=== PATIENT | female | born 1945 | race Caucasian/White ===

== ENCOUNTER 2019-04-21 09:07 | Outpatient (CLI) | payer BC ==
--- NOTE | 2019-04-21 12:47 | BD ---
BONE DENSITOMETRY: INDICATION: Postmenopausal osteoporosis screening. FINDINGS: Lumbar Spine: BMD (g/cm2) L1 0.814 T-Score: -1.6 L2 0.820 T-Score: -1.9 L3 0.901 T-Score: -1.7 L4 0.852 T-Score: -1.9 L1-L4 0.847 T-Score: -1.8 Femoral Neck: 0.567 T-Score: -2.5 Total Femur: 0.737 T-Score: -1.7 Impression: 1. Bone mineral density of the femoral neck indicates osteoporosis. 2. Bone mineral density of the lumbar spine indicates osteopenia. POS: [facility]
--- NOTE | 2019-04-28 11:10 | MMO ---
Bilateral MAMMO Bilat Screen [facility]+GUILLERMO. CLINICAL HISTORY: Patient is 73 years old and is seen for screening. The patient has no family history of breast cancer. The patient has no personal history of cancer. The patient has a history of right needle biopsy in 2009 - benign. VIEWS: The views performed were: bilateral craniocaudal with tomosynthesis and bilateral mediolateral oblique with tomosynthesis. FILMS COMPARED: The present examination has been compared to prior imaging studies performed at [facility] on 03/25/2004, 03/28/2005 and 02/25/2010. This study has been interpreted with the assistance of computer-aided detection. MAMMOGRAM FINDINGS: There are scattered fibroglandular densities. There is spiculation which appears to be adjacent to a mass in upper outer right breast. Spiculation seen on MLO only. In the left breast, there are no suspicious masses, calcifications or areas of architectural distortion. IMPRESSION: FINDING IN THE RIGHT BREAST REQUIRES ADDITIONAL EVALUATION. ADDITIONAL PROJECTIONS (RIGHT MEDIOLATERAL OBLIQUE WITH TOMOSYNTHESIS; RIGHT MEDIOLATERAL; AND RIGHT EXAGGERATED CRANIOCAUDAL WITH TOMOSYNTHESIS) ARE RECOMMENDED. THE RESULTS OF THIS EXAM WERE SENT TO THE PATIENT. ACR BI-RADS Category 0 - Incomplete: Need additional imaging evaluation. [facility] will notify the patient of the need for additional imaging services. MAMMOGRAPHY NOTE: 1. A negative mammogram report should not delay a biopsy if a dominant of clinically suspicious mass is present. 2. Approximately 10% to 15% of breast cancers are not detected by mammography. 3. Adenosis and dense breasts may obscure an underlying neoplasm. Reported by: SEBASTIAN GRAVES MD Electonically Signed: [id number]
== END 2019-04-21 09:08 | disposition home or self-care (01) ==
LOC: BICMAMMO 09:07
PROVIDERS: ATTEND Internal Medicine
DX: Z12.31 Encounter for screening mammogram for malignant neoplasm of breast (principal); M81.0 Age-related osteoporosis without current pathological fracture; M85.88 Other specified disorders of bone density and structure, other site
CPT/HCPCS: 77063; 77067; 77080

== ENCOUNTER 2019-05-07 09:43 | Outpatient (CLI) | payer BC ==
--- NOTE | 2019-05-07 10:44 | MMO ---
Right Breast MAMMO Unilat Diag DDI RT+GUILLERMO. CLINICAL HISTORY: Patient is 73 years old and is seen for additional evaluation requested from prior study. The patient has no family history of breast cancer. The patient has no personal history of cancer. The patient has a history of right needle biopsy in 2009 - benign. VIEWS: The views performed were: right craniocaudal spot compression with tomosynthesis; right mediolateral oblique spot compression with tomosynthesis; and right mediolateral with tomosynthesis. FILMS COMPARED: The present examination has been compared to prior imaging studies performed at [facility] on 04/21/2019 and 05/07/2019, and at [facility] on 03/28/2005 and 02/25/2010. This study has been interpreted with the assistance of computer-aided detection. MAMMOGRAM FINDINGS: There are scattered fibroglandular densities. There is an area of architectural distortion seen in the posterior region of the right breast at 11 o'clock. The patient provides a history of prior biopsy in this breast, which may explain the mammographic finding. Prior mammography was not performed with tomosynthesis and evaluation for stability is thus limited. Sonography of this region demonstrates no concerning findings. IMPRESSION: AREA OF ARCHITECTURAL DISTORTION IN THE RIGHT BREAST IS PROBABLY BENIGN. FOLLOW-UP IN 6 MONTHS IS RECOMMENDED. THE RESULTS OF THIS EXAM WERE SENT TO THE PATIENT. ACR BI-RADS Category 3 - Probably benign finding - short interval follow-up suggested. [facility] will notify the patient of the need for additional imaging services. MAMMOGRAPHY NOTE: 1. A negative mammogram report should not delay a biopsy if a dominant of clinically suspicious mass is present. 2. Approximately 10% to 15% of breast cancers are not detected by mammography. 3. Adenosis and dense breasts may obscure an underlying neoplasm. Reported by: GAVIN HUSSEIN MD Electonically Signed: [id number]
--- NOTE | 2019-05-07 11:11 | ULT ---
LIMITED RIGHT BREAST ULTRASOUND: 05/07/2019 PROVIDED CLINICAL HISTORY: Abnormal mammogram. FINDINGS: Limited sonographic interrogation was performed of the right breast in the region of mammographic con cern. A benign appearing mass corresponding to a stable mammographic finding is seen at the 11 o'cloc k position. The architectural distortion seen immediately adjacent to this on the mammogram demonstra karl no sonographic correlate. IMPRESSION: No concerning sonographic abnormality is present in the region of mammographic concern. Six months fo llow-up diagnostic mammogram on the right is recommended. BI-RADS category 3 - probably benign findings. POS: [facility]
== END 2019-05-07 09:44 | disposition home or self-care (01) ==
LOC: BICMAMMO 09:43
PROVIDERS: ATTEND Internal Medicine
DX: R92.8 Other abnormal and inconclusive findings on diagnostic imaging of breast (principal)
CPT/HCPCS: G0279

== ENCOUNTER 2019-08-19 14:32 | Emergency (ER) | payer BC, MEDICARE ==
[2019-08-19 15:13] LABS: #Eosinphils 0.3 thou/uL (0.0-0.7); #Lymphocytes 2.9 thou/uL (1.20-3.40); #Monocytes 0.5 thou/uL (0.11-0.59); #Neutrophils 3.9 thou/uL (1.40-6.50); %Basophils 0.4 % (0.0-1.0); %Eosinophils 3.4 % (0.0-10.0); %Lymphocytes 38.8 % (21.0-51.0); %Monocytes 6.3 % (0.0-10.0); %Neutrophils 51.2 % (42.0-75.0); Hemoglobin 13.5 g/dL (12.0-16.0); Mean Corpuscular HGB CONC 34.5 g/dL (32.0-36.0); Mean Corpuscular Hemoglobin 28.8 pg (27.0-31.0); Mean Corpuscular Volume 83.4 fL (78.0-98.0); Mean Platelet Volume 7.5 fL (7.4-10.4); Platelet Count 192 thou/uL (130-400); RBC Distribution Width 12.1 % (11.5-14.5); White Blood Cell (WBC) Count 7.5 thou/uL (4.8-10.8)
[2019-08-19 15:34] LABS: ALT (SGPT) 17 U/L (8-55); AST (SGOT) 19 U/L (5-34); Albumin 4.2 g/dL (3.4-4.8); Alkaline Phosphatase 71 U/L (40-110); Anion Gap 13 mmol/L (10-20); BUN (Urea Nitrogen) 14 mg/dL (9.8-20.1); Bilirubin, Total 0.5 mg/dL (0.2-1.2); Calc. Creatinine Clearance 0 mL/min (70-130); Calcium 9.4 mg/dL (7.8-10.44); Carbon Dioxide 23 mmol/L (23-31); Chloride 110 mmol/L (98-107); Estimated GFR-MDRD 71; Globulin 2.5 g/dL (2.4-3.5); Glucose 96 mg/dL (83-110); Potassium 3.9 mmol/L (3.5-5.1); Protein, Total 6.7 g/dL (6.0-8.3); Sodium 142 mmol/L (136-145)
--- NOTE | 2019-08-19 15:40 | RAD ---
PA AND LATERAL CHEST: HISTORY: Chest pain. COMPARISON: A 09/21/2012 exam. FINDINGS: Heart size is upper limits of normal. There is some atherosclerotic change of the aorta. The lungs are clear of any infiltrates. There are some mild arthritic changes of the spine. Surgical clips ar e seen in the right upper quadrant of the abdomen. IMPRESSION: No active intrathoracic disease. POS: [facility]
[2019-08-19] MEDS ORDERED: Diazepam 5 MG TAB ONE (16:01)
== END 2019-08-19 17:00 | disposition home or self-care (01) ==
LOC: ERS 14:32
DX: I10 Essential (primary) hypertension (principal); I25.10 Atherosclerotic heart disease of native coronary artery without angina pectoris; I25.2 Old myocardial infarction; K21.9 Gastro-esophageal reflux disease without esophagitis; E78.5 Hyperlipidemia, unspecified; E78.00 Pure hypercholesterolemia, unspecified; F32.9 Major depressive disorder, single episode, unspecified; Z87.891 Personal history of nicotine dependence
CPT/HCPCS: 36415; 71046; 80053; 84484; 85025; 93005

== ENCOUNTER 2020-01-22 13:50 | Outpatient (CLI) | payer MEDICARE, BC ==
--- NOTE | 2020-01-22 14:49 | MRI ---
MRI OF THE RIGHT KNEE: 01/22/20 PROVIDED CLINICAL HISTORY: Right knee pain. FINDINGS: The anterior cruciate ligament, posterior cruciate ligament, medial collateral ligament and lateral c ollateral ligamentous complex demonstrate an intact MR appearance as does the extensor mechanism. The medial and lateral menisci demonstrate no definite evidence for tear. There is equivocal grade II I signal demonstrated involving the body/anterior horn junction of the medial meniscus and equivocal irregularity involving the free edge of the posterior horn of the medial meniscus. There is full thickness articular cartilage loss involving the median ridge and lateral aspects of th e medial facet of the patella. No additional full thickness articular cartilage loss is evident. There is a small knee joint effusion. There is conspicuous distention of the popliteal recess. No focal concerning regional marrow or muscular signal abnormality is evident. IMPRESSION: 1. Findings equivocal for tear involving the medial meniscus. 2. Patellar chondrosis. 3. Small knee joint effusion. POS: [facility]
== END 2020-01-22 13:51 | disposition home or self-care (01) ==
LOC: SCSMRI 13:50
PROVIDERS: ATTEND Orthopaedic Surgery
DX: M23.91 Unspecified internal derangement of right knee (principal); M25.461 Effusion, right knee; R93.7 Abnormal findings on diagnostic imaging of other parts of musculoskeletal system

== ENCOUNTER 2020-02-03 08:47 | Outpatient (CLI) | payer MEDICARE, BC ==
--- NOTE | 2020-02-03 09:19 | MMO ---
Right Breast MAMMO Unilat Diag [facility]DI RT+GUILLERMO. CLINICAL HISTORY: Patient is 74 years old and is seen for diagnostic exam. The patient has no family history of breast cancer. The patient has no personal history of cancer. The patient has a history of right needle biopsy in 2009 - benign. VIEWS: The views performed were: right craniocaudal with tomosynthesis; right mediolateral oblique with tomosynthesis; and right mediolateral with tomosynthesis. FILMS COMPARED: The present examination has been compared to prior imaging studies performed at [facility] on 04/21/2019 and 05/07/2019, and at [facility] on 02/25/2010. This study has been interpreted with the assistance of computer-aided detection. MAMMOGRAM FINDINGS: There are scattered fibroglandular densities. Finding 1: There are stable benign appearing calcifications seen in the right breast. Finding 2: There is a stable area of architectural distortion seen in the upper-outer region of the right breast. Finding 3: There is a stable mass with circumscribed margins and associated benign appearing calcifications seen in the right breast. IMPRESSION: FINDING 1: STABLE CALCIFICATIONS IN THE RIGHT BREAST ARE BENIGN. FINDING 2: STABLE AREA OF ARCHITECTURAL DISTORTION IN THE UPPER-OUTER REGION OF THE RIGHT BREAST IS PROBABLY BENIGN. FOLLOW-UP IN 6 MONTHS IS RECOMMENDED. FINDING 3: STABLE MASS IN THE RIGHT BREAST IS BENIGN. THE RESULTS OF THIS EXAM WERE SENT TO THE PATIENT. ACR BI-RADS Category 3 - Probably benign finding - short interval follow-up suggested. [facility] will notify the patient of the need for additional imaging services. MAMMOGRAPHY NOTE: 1. A negative mammogram report should not delay a biopsy if a dominant of clinically suspicious mass is present. 2. Approximately 10% to 15% of breast cancers are not detected by mammography. 3. Adenosis and dense breasts may obscure an underlying neoplasm. Reported by: AIDA BARTH MD Electonically Signed: [id number]
== END 2020-02-03 08:48 | disposition home or self-care (01) ==
LOC: BICMAMMO 08:47
PROVIDERS: ATTEND Internal Medicine
DX: R92.2 Inconclusive mammogram (principal); R92.1 Mammographic calcification found on diagnostic imaging of breast; N63.10 Unspecified lump in the right breast, unspecified quadrant
CPT/HCPCS: 77065; G0279

== ENCOUNTER 2021-03-08 09:21 | Outpatient (CLI) | payer MEDICARE, BC | END 2021-03-08 09:22 | disposition home or self-care (01) | LOC: BICMAMMO 09:21 | PROVIDERS: ATTEND Internal Medicine | DX: Z13.820 Encounter for screening for osteoporosis (principal); M81.0 Age-related osteoporosis without current pathological fracture; M85.89 Other specified disorders of bone density and structure, multiple sites | CPT/HCPCS: 77080 ==

== ENCOUNTER 2021-08-24 08:50 | Inpatient (IN) | payer MEDICARE, BC ==
[2021-08-24] MEDS ORDERED: Iopamidol 370 76% 100 ML VIAL ONE (09:40)
[2021-08-24 09:44] LABS: ALT (SGPT) 12 U/L (8-55); AST (SGOT) 15 U/L (5-34); Albumin 3.9 g/dL (3.4-4.8); Alkaline Phosphatase 49 U/L (40-110); Anion Gap 14 mmol/L (10-20); BUN (Urea Nitrogen) 17 mg/dL (9.8-20.1); Bilirubin, Total 0.4 mg/dL (0.2-1.2); Calc. Creatinine Clearance 0 mL/min (70-130); Carbon Dioxide 21 mmol/L (23-31); Chloride 109 mmol/L (98-107); Glucose 85 mg/dL (83-110); Potassium 3.8 mmol/L (3.5-5.1); Protein, Total 5.9 g/dL (5.8-8.1); Sodium 140 mmol/L (136-145)
[2021-08-24 09:54] LABS: #Eosinphils 0.1 thou/uL (0.0-0.7); #Lymphocytes 1.8 thou/uL (1.20-3.40); #Monocytes 0.6 thou/uL (0.11-0.59); #Neutrophils 5.3 thou/uL (1.40-6.50); %Basophils 0.5 % (0.0-1.0); %Eosinophils 1.8 % (0.0-10.0); %Lymphocytes 23.1 % (21.0-51.0); %Monocytes 7.3 % (0.0-10.0); %Neutrophils 67.4 % (42.0-75.0); Hemoglobin 7.9 g/dL (12.0-16.0); Mean Corpuscular HGB CONC 33.3 g/dL (32.0-36.0); Mean Corpuscular Hemoglobin 28.9 pg (27.0-31.0); Mean Corpuscular Volume 86.8 fL (78.0-98.0); Mean Platelet Volume 7.2 fL (7.4-10.4); Platelet Count 240 thou/uL (130-400); RBC Distribution Width 13.2 % (11.5-14.5); Red Blood Cell (RBC) Count 2.75 mill/uL (4.20-5.40); White Blood Cell (WBC) Count 7.9 thou/uL (4.8-10.8)
[2021-08-24 10:13] LABS: CKMB 1.2 ng/mL (0-6.6)
[2021-08-24 10:39] LABS: Magnesium 1.9 mg/dL (1.6-2.6)
[2021-08-24] MEDS ORDERED: Ondansetron PF 4 MG/2 ML Vial IVP PRN (11:15)
[2021-08-24 12:19] LABS: Bilirubin Negative (Negative); Blood, Urine Negative (Negative); Clarity Clear (Clear); Glucose, Urine (Dipstick) Normal (Negative); Ketone, Urine Negative (Negative); Leukocyte Negative Leu/uL (Negative); Nitrite Negative (Negative); Protein, Urine (Dipstick) Negative (Neg-Trace); Urobilinogen Normal mg/dL (Less than 2); pH, Urine 6.5 (5.0-9.0)
[2021-08-24 12:22] LABS: Specific Gravity, Urine 1.045 (1.002-1.036)
[2021-08-24 13:55] VITALS: BMI 23.9
[2021-08-24 16:21] LABS: CKMB 1.1 ng/mL (0-6.6)
[2021-08-24] MEDS: Atorvastatin Calcium 40 MG TAB PO SCH (20:07)
[2021-08-24] MEDS: Metoprolol Tartrate 25 MG TAB PO SCH (20:07)
[2021-08-24] MEDS: Acetaminophen 325 MG TAB PO PRN (20:07)
[2021-08-24] MEDS: Pantoprazole 40 MG VIAL IVP SCH (20:08)
[2021-08-24 22:11] LABS: SARS-CoV-2 PCR by NAA Not Detected (NotDetected)
[2021-08-25 04:39] LABS: #Basophils 0.1 thou/uL (0.0-0.2); #Eosinphils 0.3 thou/uL (0.0-0.7); #Monocytes 0.6 thou/uL (0.11-0.59); #Neutrophils 4.1 thou/uL (1.40-6.50); %Basophils 0.7 % (0.0-1.0); %Eosinophils 3.7 % (0.0-10.0); %Lymphocytes 37.1 % (21.0-51.0); %Monocytes 7.2 % (0.0-10.0); %Neutrophils 51.3 % (42.0-75.0); Mean Corpuscular HGB CONC 35.1 g/dL (32.0-36.0); Mean Corpuscular Hemoglobin 30.4 pg (27.0-31.0); Mean Corpuscular Volume 86.7 fL (78.0-98.0); Mean Platelet Volume 7.2 fL (7.4-10.4); Platelet Count 201 thou/uL (130-400); Red Blood Cell (RBC) Count 3.28 mill/uL (4.20-5.40)
[2021-08-25 04:45] LABS: Anion Gap 8 mmol/L (10-20); BUN (Urea Nitrogen) 13 mg/dL (9.8-20.1); Calc. Creatinine Clearance 64 mL/min (70-130); Calcium 8.5 mg/dL (7.8-10.44); Carbon Dioxide 21 mmol/L (23-31); Chloride 114 mmol/L (98-107); Glucose 91 mg/dL (83-110); Potassium 3.9 mmol/L (3.5-5.1); Sodium 139 mmol/L (136-145)
[2021-08-25] MEDS: Acetaminophen 325 MG TAB PO PRN ×2 (07:26→13:07)
[2021-08-25] MEDS: Metoprolol Tartrate 25 MG TAB PO SCH ×2 (08:42→20:50)
[2021-08-25] MEDS: Pantoprazole 40 MG VIAL IVP SCH ×2 (08:59→20:50)
[2021-08-25 15:43] LABS: Hemoglobin 9.7 g/dL (12.0-16.0)
[2021-08-25 20:16] LABS: Hemoglobin 9.6 g/dL (12.0-16.0)
[2021-08-25] MEDS: Atorvastatin Calcium 40 MG TAB PO SCH (20:50)
[2021-08-25] MEDS: Preparation H HC 1% Cream 26 GM TUBE TOP SCH (20:55)
[2021-08-26 02:20] LABS: Hemoglobin 9.5 g/dL (12.0-16.0)
[2021-08-26 08:04] LABS: Hemoglobin 9.8 g/dL (12.0-16.0)
[2021-08-26] MEDS: Metoprolol Tartrate 25 MG TAB PO SCH (09:36)
[2021-08-26] MEDS: Pantoprazole 40 MG VIAL IVP SCH (09:37)
[2021-08-26] MEDS: Preparation H HC 1% Cream 26 GM TUBE TOP SCH (09:40)
[2021-08-26 09:42] VITALS: BP 154/66; TEMP 97.6
== END 2021-08-26 12:52 | disposition home or self-care (01) | DRG 377 ==
LOC: ERS 08:50 → ERHOLD 10:45 → 2NO 13:29
PROVIDERS: ADMIT Internal Medicine; ATTEND Internal Medicine
PROC: 30233N1 Transfusion of Nonautologous Red Blood Cells into Peripheral Vein, Percutaneous Approach (ICD-10-PCS; principal; 2021-08-24)
DX: K92.1 Melena (principal); I21.A1 Myocardial infarction type 2; D62 Acute posthemorrhagic anemia; Z20.822 Contact with and (suspected) exposure to COVID-19; I10 Essential (primary) hypertension; I25.10 Atherosclerotic heart disease of native coronary artery without angina pectoris; E78.5 Hyperlipidemia, unspecified; K21.9 Gastro-esophageal reflux disease without esophagitis; E78.00 Pure hypercholesterolemia, unspecified; F32.A Depression, unspecified; I95.9 Hypotension, unspecified; Z88.2 Allergy status to sulfonamides; Z88.8 Allergy status to other drugs, medicaments and biological substances; I25.2 Old myocardial infarction; Z90.49 Acquired absence of other specified parts of digestive tract; Z90.710 Acquired absence of both cervix and uterus; Z90.89 Acquired absence of other organs; Z87.891 Personal history of nicotine dependence; Z79.899 Other long term (current) drug therapy; Z79.82 Long term (current) use of aspirin; Z98.51 Tubal ligation status
CPT/HCPCS: 36415; 36430; 71045; 74177; 80048; 80053; 81003; 82553; 83735; 84484; 85014; 85018; 85025; 86850; 86900; 86901; 93005; 94760; C9113; P9016; Q9967; U0003; U0005

== ENCOUNTER 2021-09-03 09:17 | Emergency (ER) | payer MEDICARE, BC ==
[2021-09-03 09:59] LABS: #Basophils 0.1 thou/uL (0.0-0.2); #Lymphocytes 2.9 thou/uL (1.20-3.40); #Monocytes 0.9 thou/uL (0.11-0.59); #Neutrophils 9.5 thou/uL (1.40-6.50); %Basophils 0.7 % (0.0-1.0); %Eosinophils 0.2 % (0.0-10.0); %Lymphocytes 21.3 % (21.0-51.0); %Monocytes 6.7 % (0.0-10.0); Hemoglobin 6.8 g/dL (12.0-16.0); Mean Corpuscular HGB CONC 33.4 g/dL (32.0-36.0); Mean Corpuscular Hemoglobin 28.9 pg (27.0-31.0); Mean Corpuscular Volume 86.4 fL (78.0-98.0); Mean Platelet Volume 7.4 fL (7.4-10.4); Platelet Count 259 thou/uL (130-400); Red Blood Cell (RBC) Count 2.36 mill/uL (4.20-5.40); White Blood Cell (WBC) Count 13.4 thou/uL (4.8-10.8)
[2021-09-03 10:26] LABS: ALT (SGPT) 12 U/L (8-55); AST (SGOT) 14 U/L (5-34); Albumin 3.8 g/dL (3.4-4.8); Alkaline Phosphatase 39 U/L (40-110); Anion Gap 15 mmol/L (10-20); BUN (Urea Nitrogen) 27 mg/dL (9.8-20.1); Bilirubin, Total 0.4 mg/dL (0.2-1.2); Calc. Creatinine Clearance 0 mL/min (70-130); Calcium 8.9 mg/dL (7.8-10.44); Carbon Dioxide 19 mmol/L (23-31); Chloride 104 mmol/L (98-107); Globulin 2.1 g/dL (2.4-3.5); Glucose 137 mg/dL (83-110); Potassium 3.9 mmol/L (3.5-5.1); Protein, Total 5.9 g/dL (5.8-8.1); Sodium 134 mmol/L (136-145)
[2021-09-03 10:37] LABS: Bacteria/HPF None Seen HPF (None Seen); Bilirubin Negative (Negative); Blood, Urine Negative (Negative); Clarity Clear (Clear); Glucose, Urine (Dipstick) Normal (Negative); Ketone, Urine Negative (Negative); Leukocyte 75 Leu/uL (Negative); Nitrite Negative (Negative); Protein, Urine (Dipstick) Negative (Neg-Trace); RBC/HPF 0-3 HPF (0-3); Specific Gravity, Urine 1.007 (1.002-1.036); Squamous Epithelial 0-3 HPF (0-3); Urobilinogen Normal mg/dL (Less than 2); pH, Urine 6.5 (5.0-9.0)
== END 2021-09-03 15:00 | disposition home or self-care (01) ==
LOC: ERS 09:17
DX: D64.9 Anemia, unspecified (principal); K92.2 Gastrointestinal hemorrhage, unspecified; I10 Essential (primary) hypertension; K21.9 Gastro-esophageal reflux disease without esophagitis; I25.10 Atherosclerotic heart disease of native coronary artery without angina pectoris; I25.2 Old myocardial infarction; E78.5 Hyperlipidemia, unspecified; E78.00 Pure hypercholesterolemia, unspecified; Z87.891 Personal history of nicotine dependence
CPT/HCPCS: 36430; 80053; 85025; 86850; 86900; 86901; 86920; P9016; 81003; 81015; 99284

== ENCOUNTER 2022-04-25 13:22 | Outpatient (CLI) | payer MEDICARE, BC | END 2022-04-25 13:23 | disposition home or self-care (01) | LOC: BICMAMMO 13:22 | PROVIDERS: ATTEND Internal Medicine | DX: R92.8 Other abnormal and inconclusive findings on diagnostic imaging of breast (principal) | CPT/HCPCS: 77066; G0279 ==

== ENCOUNTER 2024-04-14 20:12 | Emergency (ER) | payer MEDICARE ==
[2024-04-14 21:07] LABS: #Basophils Less than 0.03 10x3/uL (0.0-0.2); #Eosinophils Less than 0.03 10x3/uL (0.0-0.7); %Basophils 0.2 % (0.0-1.0); %Lymphocytes 11.2 % (21.0-51.0); %Monocytes 3.2 % (0.0-10.0); %Neutrophils 83.7 % (42.0-75.0); Hematocrit 38.8 % (36.0-47.0); Hemoglobin 13.1 g/dL (12.0-16.0); Mean Corpuscular HGB CONC 33.8 g/dL (32.0-36.0); Mean Corpuscular Hemoglobin 28.4 pg (27.0-31.0); Mean Corpuscular Volume 84.2 fL (78.0-98.0); Mean Platelet Volume 9.5 fL (7.4-10.4); Platelet Count 229 10x3/uL (130-400); RBC Distribution Width 13.9 % (11.5-14.5); Red Blood Cell (RBC) Count 4.61 mill/uL (4.20-5.40)
[2024-04-14 21:32] LABS: ALT (SGPT) 19 U/L (8-55); AST (SGOT) 16 U/L (5-34); Albumin 4.2 g/dL (3.4-4.8); Alkaline Phosphatase 52 U/L (40-110); Anion Gap 12 mmol/L (10-20); BUN (Urea Nitrogen) 22 mg/dL (9.8-20.1); Bilirubin, Total 0.5 mg/dL (0.2-1.2); Calc. Creatinine Clearance 0 mL/min (70-130); Calcium 9.8 mg/dL (7.8-10.44); Carbon Dioxide 25 mmol/L (23-31); Chloride 105 mmol/L (98-107); Estimated GFR 46; Globulin 2.5 g/dL (2.4-3.5); Glucose 132 mg/dL (83-110); Protein, Total 6.7 g/dL (5.8-8.1); Sodium 137 mmol/L (136-145)
[2024-04-14 21:37] LABS: Troponin I 0.026 ng/mL (< 0.028)
[2024-04-14] MEDS ORDERED: cloNIDine 0.1 MG TAB ONE (21:54)
[2024-04-14] MEDS ORDERED: Lorazepam 1 MG TAB ONE (22:49)
== END 2024-04-14 23:09 | disposition home or self-care (01) ==
LOC: ERS 20:12
DX: K50.90 Crohn's disease, unspecified, without complications (principal); F41.9 Anxiety disorder, unspecified; I10 Essential (primary) hypertension; E78.00 Pure hypercholesterolemia, unspecified; Z87.891 Personal history of nicotine dependence; Z79.899 Other long term (current) drug therapy
CPT/HCPCS: 36415; 80053; 84484; 85025; 86850; 86900; 86901; 93005